=== PATIENT | male | born 1950 | race Caucasian/White ===

== ENCOUNTER 2016-12-17 13:43 | Emergency (ER) | payer OTHER, MEDICARE ==
[~2016-12-17] VITALS: Ht 175.3 cm; Wt 93.0 kg
[~2016-12-17 13:43] MED LIST: ACTOS30 M1 PO; ACTOS30 MG PO; ASPIRIN325 M2 PO; ATORVASTATIN CA40 MG PO; ATORVASTATIN CA80 M1 PO; AUGMENTIN 500-1 EACH PO; CALCIUM600 M2 PO; FISH OIL 1,0001 EAC1 PO; HYDROCODONE/ACE1 TA1 PO; JANUVIA 50MG50 MG PO; JANUVIA50 M1 PO; LISINOPRIL5 M1 PO; NORVASC10 M1 PO; PAROXETINE HYDR30 MG PO; PAXIL30 M1 PO; TRAMADOL50 MG PO; VALIUM2 MG PO
[2016-12-17 15:13] LABS: ABSOLUTE BASOPHIL COUNT 0.1 /CUMM (0.0-0.2); ABSOLUTE EOSINOPHIL COUNT 0.3 /CUMM (0.0-0.7); ABSOLUTE GRANULOCYTE CT 6.8 /CUMM (1.4-6.5); ABSOLUTE LYMPH COUNT 1.4 /CUMM (1.2-3.4); ABSOLUTE MONOCYTE COUNT 0.7 /CUMM (0.10-0.60); BASOPHIL % 0.8 % (0.0-2.0); EOSINOPHIL % 3.2 % (0-5); GRANULOCYTE % 73.5 % (42.2-75.2); HEMATOCRIT 37.8 % (42-52); MEAN CORPUSCULAR HGB 28.5 PG (27.0-31.0); MEAN CORPUSCULAR HGB CONC 33.9 G/DL (33.0-37.0); MEAN CORPUSCULAR VOLUME 84.1 FL (80.0-94.0); MEAN PLATELET VOLUME 7.8 FL (7.4-10.4); PLATELET COUNT 227 /CUMM (130-400); RBC DISTRIBUTION WIDTH 14.8 % (11.5-14.5); RED BLOOD CELL CT 4.49 /CUMM (4.70-6.10); WHITE BLOOD CELL COUNT 9.3 /CUMM (4.8-10.8)
--- NOTE | 2016-12-17 16:26 | ED HAND/WRIST INJURY COMPLAINT ---
History of Present Illness General Chief Complaint: Upper Extremity Problem Stated Complaint: R HAND SWOLLEN Source: patient Exam Limitations: no limitations Vital Signs & Intake/Output Vital Signs & Intake/Output Vital Signs Date Time Temp Pulse Resp B/P Pulse O2 O2 Flow FiO2 Ox Delivery Rate 12/17 1851 97.6 80 18 173/95 99 Room Air 12/17 1353 97.4 90 16 160/94 97 Room Air ED Intake and Output 12/18 0000 12/17 1200 Intake Total Output Total Balance Patient 205 lb Weight Allergies Coded Allergies: NO KNOWN ALLERGIES (03/14/16) Reconcile Medications Amlodipine Besylate (Norvasc) 10 MG TABLET 1 TAB PO DAILY HIGH BLOOD PRESSURE (Reported) Amoxicillin 500 MG TABLET 1 TAB PO TID CELLULITIS Aspirin (Aspirin*) 325 MG TABLET 1 TAB PO DAILY HEART HEALTH (Reported) Atorvastatin Calcium 80 MG TABLET 1 TAB PO 1700 HEART HEALTH Calcium Carbonate (Calcium) (Unknown Strength) TABLET (Unknown Dose) PO DAILY SUPPLEMENT (Reported) Lisinopril 5 MG TABLET 1 TAB PO DAILY High blood pressure [place]-3 Fatty Acids/Fish Oil (Fish Oil 1,000 MG Softgel) (Unknown Strength) CAPSULE (Unknown Dose) PO DAILY SUPPLEMENT (Reported) Paroxetine HCl (Paxil) 30 MG TABLET 2 TAB PO DAILY depression (Reported) Pioglitazone HCl 15 MG TABLET 1 TAB PO DAILY DM (Reported) Potassium Chloride 20 MEQ TAB.ER.PRT 1 TAB PO DAILY SUPPLEMENT (Reported) Sitagliptin Phosphate (Januvia) 50 MG TABLET 1 TAB PO DAILY DIABETES ( Reported) Sulfamethoxazole/Trimethoprim (Bactrim Ds Tablet) 800 MG-160 MG TABLET 1 TAB PO BID CELLULITIS Triage Note: PT HAS SWOLLEN RIGHT HAND FOR THE PAST 3 DAYS. PT HAS BEEN TAKING MOTRIN FOR THE PAIN WITH LITTLE EFFECT. PT REPORTS IT IS WARM TO TOUCH. PT STATES HE DID NOT INJURY HIMSELF. Triage Nurses Notes Reviewed? yes Occurred: just prior to arrival Duration: day(s):, constant, getting worse Timing: recent history Injury Environment: home Severity: moderate, severe Pain/Injury Location: Right: Hand. No Modifying Factors: none HPI: 66-year-old male comes into emergency room with right hand swelling has been going on for the past few days. Patient reports she fell about a month ago onto his right hand on the black ice. Some associated warmth. Denies any prior history of gout. Denies any recent injuries. Denies any fever chills. Sharp throbbing pain. Associated swelling. Denies any other associated symptoms. (AVTAR ESPINOSA) Past History Travel History Traveled to [place] past 21 day No Medical History Any Pertinent Medical History? 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 Hx Contributory? No (AVTAR ESPINOSA) Review of Systems Review of Systems Constitutional: Reports: no symptoms. EENTM: Reports: no symptoms. Respiratory: Reports: no symptoms. Cardiovascular: Reports: no symptoms. GI: Reports: no symptoms. Genitourinary: Reports: no symptoms. Musculoskeletal: Reports: see HPI. Skin: Reports: see HPI. Neurological/Psychological: Reports: no symptoms. Hematologic/Endocrine: Reports: no symptoms. Immunologic/Allergic: Reports: no symptoms. All Other Systems: Reviewed and Negative (AVTAR ESPINOSA) Physical Exam Physical Exam General Appearance: well developed/nourished, mild distress Head: atraumatic Eyes: Bilateral: normal appearance. Ears, Nose, Throat: normal ENT inspection, hearing grossly normal Neck: normal inspection Cardiovascular/Respiratory: no respiratory distress Back: normal inspection Wrist Right: swelling, tenderness Hand Left: normal inspection Hand Right: swelling, tender, warmth Neurologic/Tendon: normal sensation, normal motor functions, normal tendon functions, responds to pain, no evidence tendon injury, no pulse deficit Skin: intact, normal color, warm/dry Lymphatic: no anterior cervical stephanie (AVTAR ESPINOSA) Progress Differential Diagnosis: abscess, cellulitis, contusion, fracture, gout, paronychia, septic arthritis, sprain, tenosynovitis Plan of Care: Orders Procedure Date/time Status COMPREHENSIVE METABOLIC PANEL 12/17 1416 Complete CBC WITHOUT DIFFERENTIAL 12/17 1416 Complete Laboratory Tests 12/17/16 1504: Anion Gap 13, Estimated GFR 30 L, BUN/Creatinine Ratio 15.0, Glucose 152 H, Calcium 9.4, Total Bilirubin 0.5, AST 14 L, ALT 20 L, Alkaline Phosphatase 37, Total Protein 6.5, Albumin 3.5, Globulin 3.0, Albumin/Globulin Ratio 1.2, CBC w Diff NO MAN DIFF REQ, RBC 4.49 L, MCV 84.1, MCH 28.5, RDW 14.8 H, MPV 7.8, Gran % 73.5, Lymphocytes % 14.8 L, Monocytes % 7.7, Eosinophils % 3.2, Basophils % 0.8, Absolute Granulocytes 6.8 H, Absolute Lymphocytes 1.4, Absolute Monocytes 0.7 H, Absolute Eosinophils 0.3, Absolute Basophils 0.1, PUBS MCHC 33.9 Diagnostic Imaging: Viewed by Me: Radiology Read. Discussed w/RAD: Radiology Read. Radiology Impression: SERVICE DATE: 12/17/16 EXAM TYPE: RAD - XRY-HAND, RIGHT EXAMINATION: XR HAND, RIGHT CLINICAL INFORMATION: Fall. Pain. COMPARISON: None TECHNIQUE: AP, lateral, and oblique views of the right hand. FINDINGS: No fracture. No dislocation. Joint spaces are maintained. No bone erosion. No large bone spur. There is chondrocalcinosis with calcifications of the TFCC of the wrist. IMPRESSION: 1. No acute change. 2. 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 Patient is nontoxic-appearing. Patient is in no apparent distress. Symptoms are more consistent with cellulitis as opposed to gout. Patient started on oral antibiotics. Patient told to return in 3 days to have reevaluated by myself. Return sooner if any spreading of redness fever or chills at home. Patient understands and agrees with plan of care. Patient seen by Dr. andrew who agrees with plan of care. (AVTAR ESPINOSA) Departure Departure Disposition: HOME OR SELF CARE Condition: Stable Clinical Impression Primary Impression: Cellulitis of right hand Referrals: NINA KAPLAN,JONATAN Stern (PCP/Family) Additional Instructions: Take Bactrim and amoxicillin as prescribed. Elevate hand. Return in 3 days for wound check. Return sooner if any spreading of redness, fever, or any other concerns. Please go over all results of today's visit with your primary care doctor. Contact your primary care doctor to let them know you were here in the emergency room. There may be nonspecific findings which may not be related to your visit today here in the emergency room but may require further evaluation and chronic monitoring by your primary care doctor. If you had a laceration today the chance of foreign body always remains. You should follow-up with your primary care doctor for recheck in 3-5 days for a wound check. If you had an x-ray done there is a chance that a fracture could have been missed on initial read and you should follow-up with your primary care doctor for repeat x-rays if symptoms persist. If your blood pressure was elevated here in the emergency room please have rechecked by her primary care doctor within the next 48 hours by your primary care doctor. If you were prescribed a narcotic here in the emergency room or any type of controlled substances you're not allowed to drive while taking this medication or operate any type of heavy machinery. Narcotics can make you feel lightheaded dizziness nausea and can cause constipation. You may need to picker a stool softener. Thank you for choosing [facility] emergency room. Please return to the emergency room immediately if you have any other concerns worsening of symptoms. Departure Forms: Customer Survey General Discharge Information Prescriptions: Current Visit Scripts Sulfamethoxazole/Trimethoprim (Bactrim Ds Tablet) 1 TAB PO BID #20 TAB Amoxicillin 1 TAB PO TID #30 TAB (AVTAR ESPINOSA) PA/PALEOLOGY TEACHER Co-Sign Statement Statement: ED Attending supervision documentation- [X] I saw and evaluated the patient. I have also reviewed all the pertinent lab results and diagnostic results. I agree with the findings and the plan of care as documented in the PA's/PALEOLOGY TEACHER's documentation. [X] I have reviewed the ED Record and agree with the PA's/PALEOLOGY TEACHER's documentation. [] Additions or exceptions (if any) to the PAs/PALEOLOGY TEACHER's note and plan are summarized below: [] (JUAN MD,MORGAN)
[2016-12-17] MEDS ORDERED: POTASSIUM CHLO20 ME2 PO (16:47)
[2016-12-17] MEDS ORDERED: PIOGLITAZONE HC15 MG PO (16:48)
--- NOTE | 2016-12-17 17:50 | RADIOLOGY REPORT ---
EXAMINATION: XR HAND, RIGHT CLINICAL INFORMATION: Fall. Pain. COMPARISON: None TECHNIQUE: AP, lateral, and oblique views of the right hand. FINDINGS: No fracture. No dislocation. Joint spaces are maintained. No bone erosion. No large bone spur. There is chondrocalcinosis with calcifications of the TFCC of the wrist. IMPRESSION: 1. No acute change. 2. 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
[2016-12-17] MEDS ORDERED: AMOXICILLIN500 M3 PO (18:05)
[2016-12-17] MEDS ORDERED: BACTRIM DS TAB1 EACH PO (18:05)
[2016-12-17 18:51] VITALS: BP 173/95
== END 2016-12-17 19:02 ==
LOC: ERH 13:43
PROVIDERS: Emergency Medicine
DX: L03.113 Cellulitis of right upper limb (principal)
CPT/HCPCS: 73130-RT

== ENCOUNTER 2016-12-20 15:35 | Emergency (ER) | payer OTHER, MEDICARE ==
[~2016-12-20] VITALS: Ht 175.3 cm; Wt 93.9 kg
[~2016-12-20 15:35] MED LIST changes: +AMOXICILLIN500 M3 PO; +BACTRIM DS TAB1 EACH PO; +PIOGLITAZONE HC15 MG PO; +POTASSIUM CHLO20 ME2 PO
[2016-12-20 15:44] VITALS: BP 146/84
--- NOTE | 2016-12-20 16:02 | ED ANIMAL BITE/WOUND CHECK ---
History of Present Illness General Chief Complaint: General Adult Stated Complaint: PT IS HERE IS A FOLLOW UP Source: patient, old records Exam Limitations: no limitations Vital Signs & Intake/Output Vital Signs & Intake/Output Vital Signs Date Time Temp Pulse Resp B/P Pulse O2 O2 Flow FiO2 Ox Delivery Rate 12/20 1544 96.8 111 20 146/84 98 Room Air Allergies Coded Allergies: NO KNOWN ALLERGIES (03/14/16) Reconcile Medications Amlodipine Besylate (Norvasc) 10 MG TABLET 1 TAB PO DAILY HIGH BLOOD PRESSURE (Reported) Amoxicillin 500 MG TABLET 1 TAB PO TID CELLULITIS Aspirin (Aspirin*) 325 MG TABLET 1 TAB PO DAILY HEART HEALTH (Reported) Atorvastatin Calcium 80 MG TABLET 1 TAB PO 1700 HEART HEALTH Calcium Carbonate (Calcium) (Unknown Strength) TABLET (Unknown Dose) PO DAILY SUPPLEMENT (Reported) Lisinopril 5 MG TABLET 1 TAB PO DAILY High blood pressure [place]-3 Fatty Acids/Fish Oil (Fish Oil 1,000 MG Softgel) (Unknown Strength) CAPSULE (Unknown Dose) PO DAILY SUPPLEMENT (Reported) Paroxetine HCl (Paxil) 30 MG TABLET 2 TAB PO DAILY depression (Reported) Pioglitazone HCl 15 MG TABLET 1 TAB PO DAILY DM (Reported) Potassium Chloride 20 MEQ TAB.ER.PRT 1 TAB PO DAILY SUPPLEMENT (Reported) Sitagliptin Phosphate (Januvia) 50 MG TABLET 1 TAB PO DAILY DIABETES ( Reported) Sulfamethoxazole/Trimethoprim (Bactrim Ds Tablet) 800 MG-160 MG TABLET 1 TAB PO BID CELLULITIS Triage Note: 66 Y/O MALE RETURNS FOR WOUND CHECK TO R HAND; STATES HE WAS DIAGNOSED WITH CELLULITIS AND TOLD TO RETURN. STATE SWELLING AND REDNESS ARE IMPROVED. AFEBRILE. Triage Nurses Notes Reviewed? yes HPI: HERE FOR RECHECK OF CELLUITIS OF THE R HAND, HE FEELS A LOT BETTER, SWELLING IS MUCH IMPROVED. NO FEVER , REDNESS IS MUCH IMPROVED. ON AMOXIL AND BACTRIM. (BRETT FERGUSON) Past History Travel History Traveled to [place] past 21 day No Medical History Any Pertinent Medical History? 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 Hx Contributory? No (BRETT FERGUSON) Review of Systems Review of Systems Constitutional: Reports: see HPI. EENTM: Reports: no symptoms. Respiratory: Reports: no symptoms. Cardiovascular: Reports: no symptoms. GI: Reports: no symptoms. Genitourinary: Reports: no symptoms. Musculoskeletal: Reports: no symptoms. Skin: Reports: see HPI. Neurological/Psychological: Reports: no symptoms. Hematologic/Endocrine: Reports: no symptoms. Immunologic/Allergic: Reports: no symptoms. All Other Systems: Reviewed and Negative (BRETT FERGUSON) Physical Exam Physical Exam General Appearance: well developed/nourished Comments: Well-developed well-nourished no apparent distress. HEENT: Atraumatic, extraocular motion intact Neck: Supple, no lymphadenopathy Back: Nontender Respiratory: No respiratory distress Extremities: No edema, full range of motion Neuro: Alert and oriented x3 Psych: Mood affect normal, normal memory normal judgment. Skin: Warm and dry, no rash on exposed skin Right upper extremity mild swelling without erythema to the dorsum of the right hand and wrist area. Nontender. Full range of motion. (BRETT FERGUSON) Progress Differential Diagnosis: abscess, cellulitis, joint infection, tenosysnovitis Plan of Care: Continue current treatment, finish antibiotics, symptoms much improved, follow- up when necessary (BRETT FERGUSON) Departure Departure Disposition: HOME OR SELF CARE Condition: Stable Clinical Impression Primary Impression: Cellulitis of hand, right Referrals: JONATAN WOOD MD (PCP/Family) Additional Instructions: continue the antibiotics. return with any worsening swelling, pain, fever or illness. Departure Forms: Customer Survey General Discharge Information (BRETT FERGUSON) PA/SHORE WORKING SUPERVISOR Co-Sign Statement Statement: ED Attending supervision documentation- [X] I saw and evaluated the patient. I have also reviewed all the pertinent lab results and diagnostic results. I agree with the findings and the plan of care as documented in the PA's/SHORE WORKING SUPERVISOR's documentation. [X] I have reviewed the ED Record and agree with the PA's/SHORE WORKING SUPERVISOR's documentation. [] Additions or exceptions (if any) to the PAs/SHORE WORKING SUPERVISOR's note and plan are summarized below: [] (JUAN KAPLAN,MORGAN)
== END 2016-12-20 16:09 ==
LOC: ERH 15:35
DX: L03.113 Cellulitis of right upper limb (principal)
CPT/HCPCS: 99281

== ENCOUNTER 2016-12-21 09:28 | Emergency (ER) | payer OTHER, MEDICARE ==
--- NOTE | 2016-12-21 10:23 | ED MVC/FALL/TRAUMA COMPLAINT ---
History of Present Illness General Chief Complaint: Fall Stated Complaint: FALL Source: patient Exam Limitations: no limitations Vital Signs & Intake/Output Vital Signs & Intake/Output Vital Signs Date Time Temp Pulse Resp B/P Pulse O2 O2 Flow FiO2 Ox Delivery Rate 12/21 0945 97.2 109 20 132/70 97 Room Air Allergies Coded Allergies: NO KNOWN ALLERGIES (03/14/16) Reconcile Medications Amlodipine Besylate (Norvasc) 10 MG TABLET 1 TAB PO DAILY HIGH BLOOD PRESSURE (Reported) Amoxicillin 500 MG TABLET 1 TAB PO TID CELLULITIS Aspirin (Aspirin*) 325 MG TABLET 1 TAB PO DAILY HEART HEALTH (Reported) Atorvastatin Calcium 80 MG TABLET 1 TAB PO 1700 HEART HEALTH Calcium Carbonate (Calcium) (Unknown Strength) TABLET (Unknown Dose) PO DAILY SUPPLEMENT (Reported) Lisinopril 5 MG TABLET 1 TAB PO DAILY High blood pressure [place]-3 Fatty Acids/Fish Oil (Fish Oil 1,000 MG Softgel) (Unknown Strength) CAPSULE (Unknown Dose) PO DAILY SUPPLEMENT (Reported) Paroxetine HCl (Paxil) 30 MG TABLET 2 TAB PO DAILY depression (Reported) Pioglitazone HCl 15 MG TABLET 1 TAB PO DAILY DM (Reported) Potassium Chloride 20 MEQ TAB.ER.PRT 1 TAB PO DAILY SUPPLEMENT (Reported) Sitagliptin Phosphate (Januvia) 50 MG TABLET 1 TAB PO DAILY DIABETES ( Reported) Sulfamethoxazole/Trimethoprim (Bactrim Ds Tablet) 800 MG-160 MG TABLET 1 TAB PO BID CELLULITIS Triage Note: PT PRESENTS TO ER S/P FALL. PT STATES HE WAS TRYING TO WALK ONTO THE BACK PORCH AND HE TRIPED OVER THE CONCERETE. PT STATES HE STRUCK THE LEFT SIDE OF HIS FOREHEAD. PT DENIES LOC. PT DENIES TAKING BLOOD THINNERS Triage Nurses Notes Reviewed? yes HPI: THIS PATIENT is a 66-year-old male presented to the emergency department today for evaluation of head strike after a fall. The patient reported that he was walking into his house when he tripped over a piece of concrete and fell forward hitting the left side of his forehead on the ground. He denied loss of consciousness. He denied any visual changes, head pain, headaches, lightheadedness, neck pain, chest pain, difficulty breathing, abdominal pain, or any other associated symptoms. The patient is not on blood thinners. (JANICE ATKINSON,SARATH) Past History Travel History Traveled to [place] past 21 day No Medical History Any Pertinent Medical History? 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 Hx Contributory? No (SARATH CAMACHO PA-C) Review of Systems Review of Systems Constitutional: Reports: no symptoms. Eyes: Reports: no symptoms. Ears, Nose, Throat, Mouth: Reports: no symptoms. Respiratory: Reports: no symptoms. Cardiovascular: Reports: no symptoms. Gastrointestinal/Abdominal: Reports: no symptoms. Musculoskeletal: Reports: see HPI. Skin: Reports: no symptoms. Neurological/Psychological: Reports: no symptoms. All Other Systems: Reviewed and Negative (SARATH CAMACHO PA-C) Physical Exam Physical Exam General Appearance: well developed/nourished, no apparent distress, alert, awake Comments: Well-developed well-nourished person in no acute distress HEENT: Normal EENT exam, head normocephalic/atraumatic with no bony deformity/ step-off the skull, no tenderness to palpation of the scalp, moist mucous membranes PERRLA bilaterally. EOMI bilaterally Neck: Supple. No midline tenderness Back: Normal inspection Cardiovascular: Regular rate and rhythm with no murmurs Respiratory: Chest nontender. No respiratory distress. Speaking in full sentences Extremity: Normal and equal pulses. No signs of trauma Neuro: Alert oriented x3, motor sensory normal, cranial nerves II through XII grossly intact. No aphasia. No facial droop. No unilateral weakness Skin: No appreciable rash on exposed skin, skin is warm and dry. Hematoma noted to the left side of the forehead with no skin breakdown. Psych: Mood and affect is normal Core Measures ACS in differential dx? Yes Severe Sepsis Present: No Septic Shock Present: No (SARATH CAMACHO PA-C) Progress Differential Diagnosis: aoritic dissection, abd injury, C/T/L spine injury, ext injury, ICH, pelvis injury, pnemothorax, spinal cord injury Plan of Care: Orders Procedure Date/time Status CT HEAD WO IV CONTRAST 12/[address] CERV SPINE WO IV CONTRAST 12/21 949 Active Diagnostic Imaging: Viewed by Me: CT Scan. Discussed w/RAD: CT Scan. Radiology Impression: PATIENT: JUSTA CORNELL PRESENT AGE: 66 PATIENT ACCOUNT NO: [id number] : 49 LOCATION: [facility] ORDERING PHYSICIAN: SARATH CAMACHO PA-C SERVICE DATE: 12/21/16 EXAM TYPE: CAT - CT CERV SPINE WO IV CONTRAST; CT HEAD WO IV CONTRAST EXAMINATION: CT HEAD WITHOUT CONTRAST CT CERVICAL SPINE WITHOUT CONTRAST CLINICAL INFORMATION: Fall. Assess for cervical spine injury or intracranial bleed. COMPARISON: None. TECHNIQUE: Multidetector CT imaging of the head and cervical spine was performed without the use of intravenous contrast. Coronal and sagittal reformatted images were generated at the technologist workstation. DLP: 1059.26 mGy-cm. FINDINGS: CT head: There is no evidence of acute intracranial hemorrhage or territorial infarction. No abnormal mass-effect or midline shift is seen. Edwards to white matter differentiation is well preserved. No extra-axial fluid collections are identified. The ventricles are normal in size. There is no abnormal attenuation within the brain parenchyma. The ventricles and sulci are slightly commensurately prominent consistent with mild diffuse volume loss. There are areas of low attenuation in the periventricular and subcortical white matter, consistent with sequelae of chronic microvascular ischemic disease. There are also lacunar infarcts in the basal ganglia bilaterally. There are no large scalp contusions or hematomas. There are no acute fractures. 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 CT cervical spine : There is anatomic alignment of the vertebral bodies. There is multilevel narrowing of intervertebral disc height. There are multilevel degenerative endplate changes. There are annular calcifications of the intervertebral discs at multiple levels. Vertebral body heights are maintained and there are no compression fractures. Atlantooccipital alignment is maintained. There is multilevel uncovertebral osteophytosis with narrowing of the neural foramina at multiple levels. The lateral masses of C1 and C2 are normally aligned and the dens is intact. There are atheromatous calcifications of the carotid bifurcations. There is a 1.2 cm focal area of hypodensity in the right lobe of the thyroid gland. The visualized lung apices are well-aerated and there is no pneumothorax. IMPRESSION: 1. There are no acute intracranial bleeds or territorial infarcts. 2. There are changes consistent with diffuse volume loss and sequelae of microvascular ischemic disease and lacunar infarcts. 3. There are no acute fractures or subluxations in the cervical spine. There are multilevel degenerative changes. 4. There is a 1.2 cm focal area of hypodensity in the right lobe of the thyroid gland, which could be further assessed with nonemergent thyroid ultrasound. DICTATED BY: VANDA VASQUEZ MD DATE/TIME DICTATED: 12/21/161050 EXCAVATING SUPERVISOR:BOLA DATE/TIME TRANSCRIBED:12/21/161050 CONFIDENTIAL, DO NOT COPY WITHOUT APPROPRIATE AUTHORIZATION. <Electronically signed in Other Vendor System> SIGNED BY: VANDA VASQUEZ MD 12/21/16 1127 (SARATH CAMACHO PA-C) Departure Departure Disposition: HOME OR SELF CARE Condition: Stable Clinical Impression Primary Impression: Fall Qualifiers: Encounter type: initial encounter Qualified Code: W19.XXXA - Unspecified fall, initial encounter Referrals: NINA KAPLAN,JONATAN Stern (PCP/Family) Additional Instructions: Please call to make a follow-up appointment with your primary care physician. Take all previously prescribed medications as directed. Return for any worsening symptoms or concerns. Departure Forms: Customer Survey General Discharge Information (SARATH CAMACHO PA-C) PA/ER MEDICAL TECHNICIAN Co-Sign Statement Statement: ED Attending supervision documentation- [X] I saw and evaluated the patient. I have also reviewed all the pertinent lab results and diagnostic results. I agree with the findings and the plan of care as documented in the PA's/ER MEDICAL TECHNICIAN's documentation. [X] I have reviewed the ED Record and agree with the PA's/ER MEDICAL TECHNICIAN's documentation. [] Additions or exceptions (if any) to the PAs/ER MEDICAL TECHNICIAN's note and plan are summarized below: [] (JUAN KAPLAN,MORGAN)
--- NOTE | 2016-12-21 11:27 | CT SCAN REPORT ---
EXAMINATION: CT HEAD WITHOUT CONTRAST CT CERVICAL SPINE WITHOUT CONTRAST CLINICAL INFORMATION: Fall. Assess for cervical spine injury or intracranial bleed. COMPARISON: None. TECHNIQUE: Multidetector CT imaging of the head and cervical spine was performed without the use of intravenous contrast. Coronal and sagittal reformatted images were generated at the technologist workstation. DLP: 1059.26 mGy-cm. FINDINGS: CT head: There is no evidence of acute intracranial hemorrhage or territorial infarction. No abnormal mass-effect or midline shift is seen. Edwards to white matter differentiation is well preserved. No extra-axial fluid collections are identified. The ventricles are normal in size. There is no abnormal attenuation within the brain parenchyma. The ventricles and sulci are slightly commensurately prominent consistent with mild diffuse volume loss. There are areas of low attenuation in the periventricular and subcortical white matter, consistent with sequelae of chronic microvascular ischemic disease. There are also lacunar infarcts in the basal ganglia bilaterally. There are no large scalp contusions or hematomas. There are no acute fractures. 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 CT cervical spine: There is anatomic alignment of the vertebral bodies. There is multilevel narrowing of intervertebral disc height. There are multilevel degenerative endplate changes. There are annular calcifications of the intervertebral discs at multiple levels. Vertebral body heights are maintained and there are no compression fractures. Atlantooccipital alignment is maintained. There is multilevel uncovertebral osteophytosis with narrowing of the neural foramina at multiple levels. The lateral masses of C1 and C2 are normally aligned and the dens is intact. There are atheromatous calcifications of the carotid bifurcations. There is a 1.2 cm focal area of hypodensity in the right lobe of the thyroid gland. The visualized lung apices are well-aerated and there is no pneumothorax. IMPRESSION: 1. There are no acute intracranial bleeds or territorial infarcts. 2. There are changes consistent with diffuse volume loss and sequelae of microvascular ischemic disease and lacunar infarcts. 3. There are no acute fractures or subluxations in the cervical spine. There are multilevel degenerative changes. 4. There is a 1.2 cm focal area of hypodensity in the right lobe of the thyroid gland, which could be further assessed with nonemergent thyroid ultrasound.
[2016-12-21 11:46] VITALS: BP 126/85
== END 2016-12-21 12:15 ==
LOC: ERH 09:28
DX: S09.90XA Unspecified injury of head, initial encounter (principal); W18.09XA Striking against other object with subsequent fall, initial encounter

== ENCOUNTER 2018-05-05 20:28 | Emergency (ER) | payer OTHER, MEDICARE ==
[~2018-05-05] VITALS: Ht 177.8 cm; Wt 86.2 kg
[~2018-05-05 20:28] MED LIST changes: +GOLYTELY SOLU4000 ML PO; +ZOFRAN ODT4 M1 SL
--- NOTE | 2018-05-05 21:56 | ED GI/GU/ABDOMINAL COMPLAINT ---
History of Present Illness General Chief Complaint: General Adult Stated Complaint: CONSTIPATION Source: patient, old records Exam Limitations: no limitations Vital Signs & Intake/Output Vital Signs & Intake/Output Vital Signs Date Time Temp Pulse Resp B/P B/P Pulse O2 O2 Flow FiO2 Mean Ox Delivery Rate 05/05 2254 94 20 165/92 100 Room Air 05/05 2058 98.3 114 16 149/82 16 Room Air ED Intake and Output 05/06 0000 05/05 1200 Intake Total 1000 Output Total Balance 1000 Intake, IV 1000 Patient 190 lb Weight Weight Reported by Patient Measurement Method Allergies Coded Allergies: No Known Allergies (05/04/18) Reconcile Medications Amlodipine Besylate (Norvasc) 10 MG TABLET 1 TAB PO DAILY HIGH BLOOD PRESSURE (Reported) Amoxicillin 500 MG TABLET 1 TAB PO TID CELLULITIS Aspirin (Aspirin*) 325 MG TABLET 1 TAB PO DAILY HEART HEALTH (Reported) Atorvastatin Calcium 80 MG TABLET 1 TAB PO 1700 HEART HEALTH Calcium Carbonate (Calcium) (Unknown Strength) TABLET (Unknown Dose) PO DAILY SUPPLEMENT (Reported) Lisinopril 5 MG TABLET 1 TAB PO DAILY High blood pressure [place]-3 Fatty Acids/Fish Oil (Fish Oil 1,000 MG Softgel) (Unknown Strength) CAPSULE (Unknown Dose) PO DAILY SUPPLEMENT (Reported) Ondansetron (Zofran Odt) 4 MG TAB.RAPDIS 1 TAB SL TID PRN NAUSEA Paroxetine HCl (Paxil) 30 MG TABLET 2 TAB PO DAILY depression (Reported) Peg 3350/Na Sulf,Bicarb,Cl/KCl (Golytely Solution) 236-22.74G SOLN.RECON 1 KIT PO X1 PRN CONSTIPATIOHN Pioglitazone HCl 15 MG TABLET 1 TAB PO DAILY DM (Reported) Potassium Chloride 20 MEQ TAB.ER.PRT 1 TAB PO DAILY SUPPLEMENT (Reported) Sitagliptin Phosphate (Januvia) 50 MG TABLET 1 TAB PO DAILY DIABETES ( Reported) Sulfamethoxazole/Trimethoprim (Bactrim Ds Tablet) 800 MG-160 MG TABLET 1 TAB PO BID CELLULITIS Triage Note: PT PRESENTS TO THE ER FOR CONSTIPATION, PT STATES THAT HE WAS SEEN HERE YESTERDAY FOR THE SAME. PT STATES THAT HE IS ALSO A DIABETIC.. LAST BM WAS LAST NIGHT. Triage Nurses Notes Reviewed? yes HPI: Patient presents with continued constipation and intermittent nausea. Patient states that he has no appetite and nausea and has not eaten or drank at all today. Patient is a diabetic. Patient states that he is still constipated. Patient was seen in the emergency department yesterday and had lab work and a CAT scan. Yesterday he said that he was having chills but today he did not have any. Patient denies any abdominal pain. There is no constipation or diarrhea. Past History Travel History Traveled to [place] past 21 day No Medical History Any Pertinent Medical History? see below for history Neurological: NONE EENT: hearing loss Cardiovascular: CAD (non-obstructive), hypertension, hyperlipidemia Respiratory: NONE Gastrointestinal: NONE Hepatic: NONE Renal: chronic renal insufficiency Musculoskeletal: sciatica Psychiatric: OCD Endocrine: diabetes Blood Disorders: NONE Cancer(s): NONE DIRECTOR OF STATE/Reproductive: NONE History of MRSA: No History of VRE: No History of CDIFF: No Tetanus Vaccine: 03/14/16 Surgical History Surgical History: hernia repair-inguinal, eye surgery Psychosocial History Who do you live with Patient/Self Services at Home None What is your primary language Swedish Tobacco Use: Never used ETOH Use: denies use Illicit Drug Use: denies illicit drug use Family History Family History, If Any: FATHER (stroke,parkinsomism). Hx Contributory? No Review of Systems Review of Systems Constitutional: Reports: no symptoms. EENTM: Reports: no symptoms. Respiratory: Reports: no symptoms. Cardiovascular: Reports: no symptoms. GI: Reports: see HPI, constipation, nausea. Genitourinary: Reports: no symptoms. Musculoskeletal: Reports: no symptoms. Skin: Reports: no symptoms. Neurological/Psychological: Reports: no symptoms. Hematologic/Endocrine: Reports: no symptoms. Immunologic/Allergic: Reports: no symptoms. All Other Systems: Reviewed and Negative Physical Exam Physical Exam General Appearance: well developed/nourished, alert, awake, mild distress Head: atraumatic, normal appearance Eyes: Bilateral: PERRL, EOMI. Ears, Nose, Throat, Mouth: hearing grossly normal, DRY MM Neck: normal inspection, supple, full range of motion Respiratory: normal breath sounds, chest non-tender, no respiratory distress, lungs clear Cardiovascular: regular rate/rhythm, normal peripheral pulses Gastrointestinal: normal bowel sounds, soft, non-tender, no organomegaly Back: normal inspection, normal range of motion Extremities: normal range of motion Neurologic/Psych: no motor/sensory deficits, awake, alert, oriented x 3, normal gait, normal mood/affect Skin: intact, normal color, warm/dry Core Measures ACS in differential dx? No Sepsis Present: No Sepsis Focused Exam Completed? No Progress Differential Diagnosis: bowel obstruction, diverticulitis, gastritis, hepatitis, pancreatitis Plan of Care: Orders Procedure Date/time Status Enema 05/05 2203 Active LIPASE 05/05 2203 Complete COMPREHENSIVE METABOLIC PANEL 05/05 2203 Complete CBC WITHOUT DIFFERENTIAL 05/05 2203 Complete AMYLASE 05/05 2203 Complete Laboratory Tests 05/05/18 2250: Anion Gap 12, Estimated GFR 25 L, BUN/Creatinine Ratio 12.7, Glucose 170 H, Calcium 7.4 L, Total Bilirubin 0.5, AST 25, ALT 37, Alkaline Phosphatase 31, Total Protein 5.4 L, Albumin 2.9 L, Globulin 2.5, Albumin/Globulin Ratio 1.2, Amylase 86, Lipase 215, CBC w Diff NO MAN DIFF REQ, RBC 4.13 L, MCV 85.3, MCH 29.3, MCHC 34.3, RDW 15.3 H, MPV 7.4, Gran % 87.8 H, Lymphocytes % 7.0 L, Monocytes % 4.9, Eosinophils % 0.1, Basophils % 0.2, Absolute Granulocytes 4.5, Absolute Lymphocytes 0.4 L, Absolute Monocytes 0.3, Absolute Eosinophils 0, Absolute Basophils 0 Initial ED EKG: none Departure Departure Disposition: HOME OR SELF CARE Condition: Stable Clinical Impression Primary Impression: Nausea Secondary Impressions: Constipation Referrals: Ta KAPLAN,Matt Stern (PCP/Family) Additional Instructions: REUTRN IF SYMPTOMS WORSEN OR FOR ANY CONCERNS Departure Forms: Customer Survey General Discharge Information
[2018-05-05 22:57] LABS: ABSOLUTE BASOPHIL COUNT 0 /CUMM (0.0-0.2); ABSOLUTE EOSINOPHIL COUNT 0 /CUMM (0.0-0.7); ABSOLUTE GRANULOCYTE CT 4.5 /CUMM (1.4-6.5); ABSOLUTE LYMPH COUNT 0.4 /CUMM (1.2-3.4); ABSOLUTE MONOCYTE COUNT 0.3 /CUMM (0.10-0.60); BASOPHIL % 0.2 % (0.0-2.0); EOSINOPHIL % 0.1 % (0-5); HEMATOCRIT 35.2 % (42-52); MEAN CORPUSCULAR HGB 29.3 PG (27.0-31.0); MEAN CORPUSCULAR HGB CONC 34.3 G/DL (33.0-37.0); MEAN CORPUSCULAR VOLUME 85.3 FL (80.0-94.0); MEAN PLATELET VOLUME 7.4 FL (7.4-10.4); PLATELET COUNT 159 /CUMM (130-400); RBC DISTRIBUTION WIDTH 15.3 % (11.5-14.5); RED BLOOD CELL CT 4.13 /CUMM (4.70-6.10); WHITE BLOOD CELL COUNT 5.2 /CUMM (4.8-10.8)
[2018-05-05 22:58] LABS: GRANULOCYTE % 87.8 % (42.2-75.2)
[2018-05-06 01:00] VITALS: BP 158/72
== END 2018-05-06 01:25 ==
LOC: ERH 20:28
PROVIDERS: Emergency Medicine
DX: K59.00 Constipation, unspecified (principal)
CPT/HCPCS: 96361; 96374; J2405